=== PATIENT | female | born 1985 | race Caucasian/White ===

== ENCOUNTER → 2016-10-10 | Outpatient (CLI) | payer OTHER ==
[~2016-10-10] MED LIST: MULT-506 PO; OXYC-57 PO
[2016-10-10 10:30] LABS: BLOOD UREA NITROGEN 6 mg/dl (7-18); BUN/CREATININE RATIO 8.1 (10-20); CALCIUM 9.3 mg/dl (8.5-10.1); CARBON DIOXIDE 28 mmol/L (21-32); CHLORIDE 101 mmol/L (98-107); CHOLESTEROL 151 mg/dl (0-200); CREATININE 0.77 mg/dl (0.60-1.20); GLUCOSE 78 mg/dl (70-99); POTASSIUM 3.9 mmol/L (3.5-5.1); SODIUM 137 mmol/L (136-145)
[2016-10-10 10:40] LABS: CHOLESTEROL/HDL RATIO 3.9; HDL CHOLESTEROL 39 mg/dl; LDL CHOLESTEROL CALCULATED 81 mg/dl; THYROID STIMULATING HORMONE 0.792 uIu/ml (0.300-4.500); TRIGLYCERIDES 155 mg/dl (0-150); VERY LOW DENSITY LIPOPROT CALC 31 mg/dl
== END | disposition home or self-care (01) ==
LOC: C.LAB1850 09:16
PROVIDERS: ATTEND Internal Medicine
DX: Z13.29 Encounter for screening for other suspected endocrine disorder (principal); Z13.1 Encounter for screening for diabetes mellitus; Z13.220 Encounter for screening for lipoid disorders

== ENCOUNTER 2023-09-02 05:59 | Inpatient (IN) ==
--- OUTSIDE RECORDS SUMMARY | 2023-09-02 06:06 | External Medical Summary | Summary of Care ---
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 0 01/25/2017 Active hydroCHLOROthiazide (HYDRODIURIL) 12.5 MG Tablet Take 1/2 tablet daily 15 Tab 3 07/02/2019 Active Mupirocin 2 % External Ointment (Bactroban) 0 07/12/2021 Active levoFLOXacin 500 MG Oral Tablet (Levaquin) 0 06/14/2022 Active Benzonatate 200 MG Oral Capsule take 1 capsule by mouth three times a day if needed for cough 0 11/07/2022 Active buPROPion HCl ER (XL) 150 MG Oral Tablet Extended Release 24 Hour (Wellbutrin XL) Take 1 Tablet by mouth in the morning. In the morning.. 0 12/26/2022 Active busPIRone HCl 10 MG Oral Tablet (Buspar) Take 1 Tablet by mouth 2 times a day as needed. 0 12/26/2022 Active Sertraline HCl 100 MG Oral Tablet (Zoloft) Take 1 Tablet by mouth in the morning. 0 12/26/2022 Active Sulindac 200 MG Oral Tablet take 1 tablet by mouth every morning and BEFORE BEDTIME 60 Tablet 5 02/16/2023 Active Folic Acid 1 MG Oral TabletIndications:Gra nulomatosis with polyangiitis without renal involvement (HCC) take 2 tablets by mouth every morning 180 Tablet 3 05/31/2023 Active Methotrexate 2.5 MG Oral TabletIndications:Gra nulomatosis with polyangiitis without renal involvement (HCC) Take 8 Tablets by mouth once a week. take 4 tablets by mouth in the morning and take 4 tablets by mouth AT DINNER ONCE A WEEK 104 Tablet 0 08/09/2023 Active documented as of this encounter (statuses as of 08/24/2023) Active Problems Problem Noted Date Diagnosed Date Granulomatosis with polyangiitis without renal i nvolvement 10/13/2021 Encounter for therapeutic drug monitoring 2021 Calculus of ureter 09/06/2021 documented as of this encounter (statuses as of 08/24/2023) Immunizations Name Administration Dates Next Due COVID-19 mRNA, LNP-s, No Pre serve, 2-Dose Series ([employer]) 08/03/2021,01/19/2021,12/29/2020 documented as of this encounter Social History Tobacco Use Types Packs/Day Years Used Date Smoking Tobacco: Some Days Cigarettes 0.3 Last attempted to quit: 12/10/2016 Smokeless Tobacco: Never Alcohol Use Standard Drinks/Week Comments Yes 0 (1 standard drink = 0.6 oz pur e alcohol) 1 a week Sex and Gender Information Value Date Recorded Sex Assigned at Female 12/05/2021 3:12 PM EDT Gender Identity Female 12/05/2021 3:12 PM EDT Sexual Orientation Straight 12/05/2021 3: 12 PM EDT Job Start Date Occupation Industry Not on file Not on file Not on file documented as of this encounter Miscellaneous Notes * Telephone Encounter - Carole Reed [facility] - 08/24/2023 1:48 PM ESTRefused Prescriptions: Disp Refills Folic Acid 1 MG Oral Tablet 180 Ta*3 Refused By: CAROLE REED for Refusal: Too soonReason for Refusal Comment: 1 year supply sent 05/31/2023 * Telephone Encounter - Stefania Condon CPhT - 08/24/2023 11:46 AM ESTPending Prescriptions: Disp Refills Folic Acid 1 MG Oral Tablet 180 Ta*3 * Telephone Encounter - Stefania Condon CPhT - 08/24/2023 11:46 AM EST Did you pend patient's preferred pharmacy and medication before forwarding?yes Pharmacy: [id number] Pending Prescriptions: Disp Refills Folic Acid 1 MG Oral Tablet 180 Ta*3 Last Visit: 01/16/2023 (in office), Visit date not found (telemedicine) Next Visit: 09/21/2023 If no future appointments scheduled, and last appointment is greater than a year ago, please schedule patient for a follow-up appointment Last date the medication was ordered: 05.31.23 Is this request for a controlled substance?No Urine Drug Screen:No results found for this or any previous visit. Patient Phone Numbers Labs: Lab Results Component Value Date/Time CREAT 0.9 01/16/2023 11:20 AM CREAT 0.90 05/27/2021 12:00 AM CREAT 0.8 11/03/2017 01:52 PM POTASSIUM 4.6 01/16/2023 11:20 AM POTASSIUM 3.5 05/27/2021 12:00 AM POTASSIUM 3.9 11/03/2017 01:52 PM ALT 17 01/16/2023 11:20 AM documented in this encounter Plan of Treatment Upcoming Encounters Date Type Department Care Team (Late st Contact Info) Description 09/21/2023 9:20 AM EST Office Visit Rheumatology [place] [address] [employer] [place] [address] Esteban Banerjee MD [facility] [place] [address] Health Maintenance Due Date Last Done Comments Hepatitis B (1 of 3 - 3-dose series) 1984 Pneumococcal Vaccine: Pediatrics (0 to 5 Years) and At-Risk Patients (6 to 64 Years) (1 - PCV) 1990 Depression Screening 1996 HIV Screening 1999 DTaP,Tdap,and Td Vaccines (1 - Tdap) 2003 Pap Smear 2005 Cervical Cancer Screening 2014 HPV/Co-Test 2014 COVID-19 Vaccine (4 - 2022-2 4 season) 2023 08/03/2021, 01/19/2021, 12/29/2020 Influenza Vaccine (FLU shot) (#1) 2023 07/27/2016 GARDASIL-HPV IMMUNIZATION SERIES Aged Out No longer eligible b ased on patient's age to complete this topic MENINGOCOCCAL (MENACTRA/MENVEO) Aged Out No longer eligible b ased on patient's age to complete this topic documented as of this encounter Medical Devices Not on filedocumented as of this encounter Visit Diagnoses Diagnosis 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
[2023-09-02] MEDS ORDERED: SODIUM CHLORIDE 0.9% 1,000 ML IV ONE ×2 (06:29→08:09)
[2023-09-02] MEDS ORDERED: ONDANSETRON INJ 2 MG/ML 2 ML VIAL ONE (06:30)
--- NOTE | 2023-09-02 06:46 | Emergency Department Note ---
Impression & Plan Accidental overdose, Substance abuse, Leukocytosis, Elevated troponin, Hypoxia ED Provider Note ED Provider Note NAME: OTF WINSLOW AGE:38 SEX: Female : 1985 ARRIVES VIA: EMS INFORMANT: Patient, EMS ED PROVIDER(s): Barbara Chandra DO CHIEF COMPLAINT: Accidental overdose HPI: This is a 38-year-old female who presents emergency department following accidental overdose. Patient states she was at her ex-boyfriend's house waiting for him to get home from work and decided to use cocaine. She states she remembers sitting down when she spoke to the cocaine and the next thing she knows she was waking up in the ambulance. EMS reports ex-boyfriend came home and found her unresponsive with minimal respiratory effort and he called 911. Boyfriend gave the patient Narcan with improvement in her mentation. Patient states she does have a prior history of cocaine abuse and does routinely use marijuana. No history of fentanyl or heroin use. PAST MEDICAL HISTORY:See Below PAST SURGICAL HISTORY:See Below FAMILY HISTORY:See Below SOCIAL HISTORY:See Below HOME MEDICATIONS:See Below ALLERGIES:See Below VITALS:See Below PHYSICAL EXAMINATION: GENERAL: alert, thin habitus, no distress, non-toxic EYE EXAM: normal conjunctiva, PERRL and EOM's grossly intact OROPHARYNX: no exudate, no erythema, lips, buccal mucosa, and tongue normal and mucous membranes are dry NECK: supple, no nuchal rigidity, no adenopathy, non-tender LUNGS: Clear to auscultation. Normal chest wall mechanics, no w/r/r HEART: no murmurs, S1 normal and S2 normal ABDOMEN: abdomen soft, non-tender, normo-active bowel sounds, no masses, no rebound or guarding. BACK: Back is symmetrical on inspection and there is no deformity, no midline tenderness, no CVA tenderness. SKIN: no rashes, petechiae, orbruising UPPER EXTREMITIES: upper extremities are grossly normal. FROM, nml pulses b/l. LOWER EXTREMITIES: No pitting edema. FROM, nml pulses b/l. NEURO EXAM: Normal sensorium, cranial nerves II-XII grossly intact, normal speech, no facial droop,nogross weakness of arms, no gross weakness of legs. Gross sensation intact. No ataxia. Vital Signs: reviewed and remarkable Differential Diagnosis: drug overdose, syncope, dysrhythmia, aspiration, pulmonary edema, laurent, endocarditis, PE, PNA, pericarditis/myocarditis, as well as others were considered MEDICAL DECISION MAKING: This is a 38 yo female with a history of substance abuse who admits to using recreational drugs again this morning and was found unresponsive with minimal respiratory effort by her ex-BF who gave her narcan. Upon arrival via EMS, patient awake, alert, oriented but had nausea/vomiting. Labs drawn and sent, IV established, EKG and CXR performed and interpreted at bedside, and patient placed on telemetry. She was given zofran and started on IVF. She was found to have significant leukocytosis and elevated troponin. She denied chest pain or trouble breathing. We discussed these may be elevated as part of a stress reaction and her unresponsive episode in which she was likely hypoxic. She was able to tolerate po. After 2 L of IVF, labs were rechecked. It was unclear from EMS report if patient had been administered CPR during this event. She continued to report feeling improved, however she began having mild hypoxia despite denying any sense of being SOB. She was placed on oxygen via NC. REpeat cxr obtained and did not show evolving pulmonary edema or evidence of aspiration. Repeat labs with persistent elevated WBC and increased troponin. Significant bedside discussion regarding the need for additional evaluation and treatment given worsening hypoxia and worsening lab abnormalities as well as immunocompromised status given use of methotrexate. She had requested to be discharged, but was eventually in agreement with plan. Case discussed with the hospitalist for additional evaluation and treatment. No ectopy or dysrhythmia noted. No evolving fever. Consultation(s): 1320: Discussed with Dr. Garza, DC hospitalist, for additional evaluation and mgmt. ER Treatment Provided: See below Diagnostics Interpreted By Me: -ECG: sinus tachycardia at 114, nml axis, nml intervals, no acute ST/T wave changes -Cardiac Monitoring: An order was placed for continuous cardiac monitoring. The monitor shows a rate of 98 with normal sinus rhythm. -Laboratory studies: As stated above and show below. -Imaging studies: X-ray Chest: A single view study of the chest was reviewed and was negative for cardiomegaly, focal infiltrate, effusion, pulmonary edema, or wide mediastinum. Triage Nursing Note Reviewed Prior/Outside Records Reviewed - prior labs reviewed via pt's phone with her permission Past Med/Surg History Medical History Encounter for screening mammogram for malignant neoplasm of breast Right flank pain Chronic sinusitis, unspecified Mo's granulomatosis Nasal obstruction Nasal crusting Recurrent sinus infections Sinus infection Dysfunctional uterine bleeding Medial meniscus tear Lump of right breast Numbness and tingling in both hands Lipid screening Moderate cervical dysplasia, histologically confirmed Calcium oxalate stones Nephrolithiasis Nicotine dependence Right hip pain Ovarian cyst Kidney stone Surgical History H/O LEEP History of colposcopy History of dilation and curettage History of tooth extraction History of elbow surgery History of shoulder surgery S/P tubal ligation Family History Mother Cancer Cardiac disorder Ovarian cancer Myocardial infarction Grandmother (Maternal) Ovarian cancer Myocardial infarction Aunt Ovarian cancer Grandfather (Maternal) Myocardial infarction Other Heart disease Hypertension No family history of adverse response to anesthesia No family history of bleeding disorder Denies family history of Prostate cancer Breast cancer Colorectal cancer Social History Smoking Status: Current every day smoker Tobacco Type: Cigarettes Cigarettes Per Day: one pack per week; Do You Dip or Chew Tobacco: No; Hx Alcohol Use: Yes Alcohol type: beer Alcohol type Comment: Socially Hx Substance Use: Yes Last Used Substance Other:: Cocaine this week per pt reported Substance Use Type Other:: Fentanyl Preferred Language: Vietnamese Communication Ability: Effective Lithographic Proofer Required: No Beliefs That Will Affect Care: None marital status: Current Living Situation: Family current occupational status: employed Other Information That Helps Us Care for You: No Feels Safe at Home: Yes Safety Concerns: Feels Safe At This Time Dental Care, Regularly: No Physical Activity Frequency: Does not Exercise Seatbelt Use: always Sunscreen Use: No Assistive Devices: None Allergies Allergies Allergy/AdvReac Type Severity Reaction Status Date / Time No Known Allergies Allergy Verified 06/01/23 09:50 Home Meds Home Medications Medication Instructions Recorded Confirmed multivitamin 1 tab PO QAM 10/11/18 09/02/23 folic acid 1 mg tablet 2 mg PO DAILY 12/20/21 09/02/23 methotrexate sodium 2.5 mg tablet 20 mg PO WK 12/20/21 09/02/23 sulindac 200 mg PO BID 06/01/23 09/02/23 Previous Rx's Medication Instructions Recorded hydrochlorothiazide 12.5 mg tablet 6.25 - 12.5 mg (0.5 - 1 x 12.5 mg) 01/17/23 PO QAM #90 tabs mupirocin 2 % topical ointment 1 applic topical BID #15 grams 05/24/23 sertraline 100 mg tablet 150 mg (1.5 x 100 mg) PO DAILY 06/01/23 #135 tabs montelukast 10 mg tablet 10 mg PO QAM #90 tabs 06/28/23 prednisone 10 mg tablet See Rx Instructions PO DAILY #30 08/22/23 Tabs bupropion HCl 150 mg 24 hr tablet, 150 mg PO QAM #90 tabs 08/29/23 extended release (Wellbutrin XL) buspirone 10 mg tablet 10 mg PO BID PRN anxiety #60 tabs 08/31/23 Results & Data (ED) Vital Signs Vital Signs - 24 hr 09/02/23 09:10 09/02/23 09:20 09/02/23 09:30 Pulse Rate 99 H 99 H 113 H Pulse Rate from SpO2 Sensor 99 H 100 H 112 H Respiratory Rate 12 11 L 15 Blood Pressure Blood Pressure Mean Pulse Oximetry 95 93 96 Oxygen Delivery Method Oxygen Flow Rate 09/02/23 09:40 09/02/23 09:50 09/02/23 10:00 Pulse Rate 95 H 97 H 107 H Pulse Rate from SpO2 Sensor 98 H 97 H 106 H Respiratory Rate 18 16 17 Blood Pressure Blood Pressure Mean Pulse Oximetry 91 90 92 Oxygen Delivery Method Oxygen Flow Rate 09/02/23 10:10 09/02/23 10:10 09/02/23 10:15 Pulse Rate 116 H 92 H Pulse Rate from SpO2 Sensor 118 H Respiratory Rate 13 Blood Pressure 136/96 Blood Pressure Mean 101 Pulse Oximetry 96 Oxygen Delivery Method Oxygen Flow Rate 09/02/23 10:20 09/02/23 10:30 09/02/23 10:30 Pulse Rate 90 88 Pulse Rate from SpO2 Sensor 91 H 89 Respiratory Rate 16 19 Blood Pressure 130/92 Blood Pressure Mean 109 Pulse Oximetry 86 L 91 Oxygen Delivery Method Oxygen Flow Rate 09/02/23 10:40 09/02/23 11:00 09/02/23 11:30 Pulse Rate 94 H 93 H Pulse Rate from SpO2 Sensor 95 H 93 H 89 Respiratory Rate 26 H 14 Blood Pressure 119/94 110/87 Blood Pressure Mean 102 94 Pulse Oximetry 88 L 89 L 89 L Oxygen Delivery Method Room Air Room Air Oxygen Flow Rate 09/02/23 12:00 09/02/23 12:30 09/02/23 13:00 Pulse Rate Pulse Rate from SpO2 Sensor 92 H 96 H 90 Respiratory Rate Blood Pressure 138/103 H 110/83 126/94 Blood Pressure Mean 114 92 104 Pulse Oximetry 93 94 97 Oxygen Delivery Method Nasal Cannula Nasal Cannula Nasal Cannula Oxygen Flow Rate 2 2 2 09/02/23 13:30 Pulse Rate Pulse Rate from SpO2 Sensor 90 Respiratory Rate Blood Pressure 142/103 H Blood Pressure Mean 116 Pulse Oximetry 96 Oxygen Delivery Method Nasal Cannula Oxygen Flow Rate 2 Laboratory Data 09/03/23 05:51 09/03/23 05:51 Lab Results 09/02/23 09/02/23 Range/Units 06:15 09:34 WBC 31.71 H* 31.71 H* (4.8-10.8) K/ul RBC 4.41 3.87 L (4.20-5.40) M/uL Hgb 14.5 12.5 (12.0-16.0) g/dl Hct 43.4 37.8 (37.0-47.0) % MCV 98.4 97.7 (80.0-100.0) fL MCH 32.9 32.3 (25.0-34.0) pg MCHC 33.4 33.1 (32.0-36.0) g/dL RDW Std Deviation 50.0 H 49.2 H (36.4-46.3) fL RDW Coeff of Sole 13.8 13.8 (11.5-14.5) % Plt Count 517 H 419 H (130-400) K/uL MPV 9.5 9.1 L (9.4-12.4) fL Immature Gran % (Auto) 1.0 1.2 % Neut % (Auto) 90.7 88.1 % Lymph % (Auto) 6.7 6.4 % Platte % (Auto) 1.1 3.9 % Eos % (Auto) 0.2 0.0 % Baso % (Auto) 0.3 0.4 % Neut # (Auto) 28.76 H 27.91 H (1.40-6.50) K/uL Lymph # (Auto) 2.12 2.03 (1.20-3.40) K/uL Platte # (Auto) 0.36 1.25 H (0.11-0.59) K/uL Eos # (Auto) 0.06 0.01 (0.00-0.50) K/uL Baso # (Auto) 0.09 0.12 (0.00-0.20) K/uL Immature Gran # (Auto) 0.32 H 0.39 H (0.01-0.20) K/uL PT 11.3 (9.0-12.0) Seconds INR 1.0 (0.9-1.1) Sodium 141 (136-145) mmol/L Potassium 3.1 L (3.5-5.1) mmol/L Chloride 102 (98-107) mmol/L Carbon Dioxide 25 (21-32) mmol/L Anion Gap 14 H (3-11) BUN 13 (6-23) mg/dl Creatinine 1.32 H (0.6-1.2) mg/dl Est Cr Clr Drug Dosing 45.3 ml/min Est GFR ( Amer) 58.8 ml/min Est GFR (Non-Af Amer) 50.7 ml/min BUN/Creatinine Ratio 9.8 L (10-20) Glucose 197 H (70-99(Fasting)) mg/dl Calcium 9.6 (8.6-10.3) mg/dl Magnesium 2.4 (1.7-2.4) mg/dl Total Bilirubin 0.2 (0.2-1.0) mg/dl AST 78 H (13-39) U/L ALT 85 H (7-52) U/L Alkaline Phosphatase 89 (34-104) U/L Troponin I High Sens 81.3 H* 127.6 H* D (0-14) pg/ml Total Protein 8.2 (6.0-8.3) gm/dl Albumin 4.7 (3.4-5.0) gm/dl Globulin 3.5 (2.5-4.0) gm/dl Albumin/Globulin Ratio 1.3 (0.9-2) Lipase 42 (11-82) U/L TSH 10.283 H (0.300-4.500) uIu/ml Free T4 0.63 (0.61-1.60) ng/dl HCG, Qual Negative (Negative) Administered Medications Bupropion HCl (Bupropion Xl 150 Mg Tabcr) 150 mg PO QAM [facility] Stop: 10/03/23 08:59 Last Admin: 09/03/23 08:32 Dose: 150 mg Documented By: MG Buspirone HCl (Buspirone 5 Mg Tab) 10 mg PO DAILY PRN PRN Reason: anxiety Stop: 10/02/23 16:54 Last Admin: 09/03/23 08:32 Dose: 10 mg Documented By: MG Enoxaparin Sodium (Enoxaparin Inj 40 Mg/0.4 Ml Syr) 40 mg SQ Q24H [facility] Stop: 10/03/23 08:59 Last Admin: 09/03/23 08:30 Dose: 40 mg Documented By: MG Folic Acid (Folic Acid 1 Mg Tab) 2 mg PO DAILY [facility] Stop: 10/03/23 08:59 Last Admin: 09/03/23 08:31 Dose: 2 mg Documented By: MG Ceftriaxone Sodium 2,000 mg/ (Dextrose) 50 mls @ 100 mls/hr IV Q24H [facility]; Protocol Stop: 09/09/23 21:59 Last Infusion: 09/03/23 02:52 Dose: Infused Documented By: Admin: 09/02/23 23:29 Dose: 100 mls/hr Documented By: TRN Melatonin (Melatonin 3 Mg Tab) 3 mg PO HS PRN PRN Reason: Sleep Stop: 10/02/23 22:52 Last Admin: 09/02/23 23:29 Dose: 3 mg Documented By: TRN Montelukast Sodium (Montelukast Sodium 10 Mg Tablet) 10 mg PO QAM [facility] Stop: 10/03/23 08:59 Last Admin: 09/03/23 08:31 Dose: 10 mg Documented By: MG Mupirocin (Mupirocin 2% Oint 22 Gm Tube) 1 appln TOP BID [facility] Stop: 10/02/23 20:59 Last Admin: 09/03/23 08:30 Dose: 1 appln Documented By: Admin: 09/02/23 20:07 Dose: 1 appln Documented By: TRN Ondansetron HCl (Ondansetron Inj 2 Mg/Ml 2 Ml Vial) 4 mg IV Q4H PRN PRN Reason: Nausea Stop: 10/02/23 17:06 Last Admin: 09/02/23 17:31 Dose: 4 mg Documented By: MG Prednisone (Prednisone 10 Mg Tablet) 10 mg PO DAILY [facility] Stop: 10/03/23 08:59 Last Admin: 09/03/23 08:31 Dose: 10 mg Documented By: MG Sertraline HCl (Sertraline Hcl 100 Mg Tablet) 150 mg PO DAILY [facility] Stop: 10/03/23 08:59 Last Admin: 09/03/23 08:31 Dose: 150 mg Documented By: MG Discontinued Medications Sodium Chloride (Nss) 1,000 mls @ 999 mls/hr IV .Q1H1M ONE Stop: 09/02/23 07:29 Last Infusion: 09/02/23 12:02 Dose: Infused Documented By: Admin: 09/02/23 06:35 Dose: 999 mls/hr Documented By: MJ Acetaminophen (Ofirmev) 1,000 mg in 100 mls @ 400 mls/hr IV NOW STA Stop: 09/02/23 08:23 Last Infusion: 09/02/23 12:48 Dose: Infused Documented By: Admin: 09/02/23 08:19 Dose: 400 mls/hr Documented By: KAREN Sodium Chloride (Nss) 1,000 mls @ 999 mls/hr IV .Q1H1M ONE Stop: 09/02/23 09:09 Last Infusion: 09/02/23 12:03 Dose: Infused Documented By: Admin: 09/02/23 08:19 Dose: 999 mls/hr Documented By: KAREN Magnesium Sulfate/Dextrose (Magnesium Sulfate / D5w) 1 gm in 100 mls @ 100 mls/hr IV NOW STA Stop: 09/02/23 12:51 Last Infusion: 09/02/23 13:00 Dose: Infused Documented By: Admin: 09/02/23 12:03 Dose: 100 mls/hr Documented By: CPB Parenteral Electrolytes (Plasma-Lyte A Ph 7.4) 1,000 mls @ 999 mls/hr IV .Q1H1M ONE Stop: 09/02/23 14:54 Last Infusion: 09/02/23 20:05 Dose: Infused Documented By: Admin: 09/02/23 15:33 Dose: 999 mls/hr Documented By: CPB Ioversol (Optiray 320 125ml) 117 ml IV ONCE ONE Stop: 09/02/23 14:53 Last Admin: 09/02/23 14:52 Dose: 117 ml Documented By: EDK Lorazepam (Lorazepam 1 Mg/1 Ml Syr Ed Inj Use) 1 mg IV ONE STA Stop: 09/02/23 07:13 Last Admin: 09/02/23 07:18 Dose: 1 mg Documented By: KV Ondansetron HCl (Ondansetron Inj 2 Mg/Ml 2 Ml Vial) Confirm Administered Dose 4 mg .ROUTE .STK-MED ONE Stop: 09/02/23 06:31 Last Admin: 09/02/23 06:35 Dose: 4 mg Documented By: MLH Potassium Chloride (Potassium Chloride Crtab 20 Meq Tabcr) 40 meq PO NOW STA Stop: 09/02/23 16:56 Last Admin: 09/02/23 17:35 Dose: 40 meq Documented By: MG Imaging Data Radiologist's Impression: Chest X-Ray 09/02/23 06:29 XR chest 1V portable CLINICAL HISTORY: Shortness of breath. COMPARISON STUDY: Chest radiograph and left rib series October 20, 2022. FINDINGS: Lung volumes are normal. Lungs are clear. There is no pneumothorax or pleural effusion. Cardiac size is normal. Mediastinal contours are normal. There is no evidence for pulmonary edema. IMPRESSION: No acute cardiopulmonary findings. ACT 112: Negative or not required by law. Electronically signed by: Micah Sunshine M.D. 09/02/2023 7:11 AM Hip/Pelvis X-Ray 09/02/23 07:17 XR hip RT 2V w pelvis CLINICAL HISTORY: Right hip pain. COMPARISON: CT of the abdomen and pelvis September 09, 2022. FINDINGS: Sacroiliac joints and symphysis pubis are intact. There is no acute fracture within the pelvis or hips. Hip joint spaces are preserved. There is mild osteophytosis of both hips. Tiny ossicles along the right acetabulum are present. No evidence for avascular necrosis of the femoral heads. There are no osseous lesions. IMPRESSION: 1. No fractures within the pelvis or hips. 2. Preserved bilateral hip joint spaces. Mild bilateral hip osteophytosis. ACT 112: Negative or not required by law. Electronically signed by: Micah Sunshine M.D. 09/02/2023 8:13 AM Chest X-Ray 09/02/23 11:07 XR chest 1V portable CLINICAL HISTORY: Hypoxia. COMPARISON STUDY: Chest radiograph performed earlier today FINDINGS: Lung volumes are normal. Lungs are clear. There is no pneumothorax or pleural effusion. Cardiac size is normal. Mediastinal contours are normal. There is no evidence for pulmonary edema. IMPRESSION: No acute cardiopulmonary findings. ACT 112: Negative or not required by law. Electronically signed by: Micah Sunshine M.D. 09/02/2023 11:54 AM Discharge Plan Visit Data Chief Complaint: Overdose (Accidental) Stated Complaint: OVERDOSE ED Provider: Barbara Chandra Discharge Problem: Accidental overdose, Substance abuse, Leukocytosis, Elevated troponin, Hypoxia Patient Disposition: Admitted As Inpatient Discharge Instructions Interventions: ED Discharge Assessment Last Done: 09/02/23 15:55
[2023-09-02 06:59] LABS: Hematocrit (blood only) 43.4 % (37.0-47.0); Hemoglobin 14.5 g/dl (12.0-16.0); Mean Corpuscular Hemoglobin 32.9 pg (25.0-34.0); Mean Corpuscular Hgb Conc 33.4 g/dL (32.0-36.0); Mean Corpuscular Volume 98.4 fL (80.0-100.0); Mean Platelet Volume 9.5 fL (9.4-12.4); Platelet Count 517 K/uL (130-400); Pregnancy Test, Serum Negative (Negative); RDW Coefficient of Variation 13.8 % (11.5-14.5); Red Blood Count 4.41 M/uL (4.20-5.40); White Blood Count 31.71 K/ul (4.8-10.8)
[2023-09-02 07:00] LABS: Albumin Globulin Ratio 1.3 (0.9-2); Albumin Level 4.7 gm/dl (3.4-5.0); BUN Creatinine Ratio 9.8 (10-20); Bilirubin,Total 0.2 mg/dl (0.2-1.0); Calcium 9.6 mg/dl (8.6-10.3); Creatinine Clr Calc Pharmacy 45.3 ml/min; Est GFR (African American) 58.8 ml/min; Est GFR (Non-African American) 50.7 ml/min; Globulin 3.5 gm/dl (2.5-4.0); Magnesium 2.4 mg/dl (1.7-2.4); Potassium 3.1 mmol/L (3.5-5.1); Total Protein 8.2 gm/dl (6.0-8.3)
[2023-09-02 07:08] LABS: Prothrombin Time 11.3 Seconds (9.0-12.0)
[2023-09-02 07:11] LABS: Troponin I High Sensitivity 81.3 pg/ml (0-14)
[2023-09-02] MEDS ORDERED: LORazepam 1 MG/1 ML SYR ED Inj Use IV STA (07:12)
--- NOTE | 2023-09-02 07:12 | XRay Report ---
XR chest 1V portable CLINICAL HISTORY: Shortness of breath. COMPARISON STUDY: Chest radiograph and left rib series October 20, 2022. FINDINGS: Lung volumes are normal. Lungs are clear. There is no pneumothorax or pleural effusion. Car diac size is normal. Mediastinal contours are normal. There is no evidence for pulmonary edema. IMPRESSION: No acute cardiopulmonary findings. ACT 112: Negative or not required by law. Electronically signed by: Micah Sunshine M.D. 09/02/2023 7:11 AM
[2023-09-02 07:13] LABS: Basophils # (auto) 0.09 K/uL (0.00-0.20); Basophils % (auto) 0.3 %; Eosinophils # (auto) 0.06 K/uL (0.00-0.50); Eosinophils % (auto) 0.2 %; Immature Granulocytes # (auto) 0.32 K/uL (0.01-0.20); Lymphocytes # (auto) 2.12 K/uL (1.20-3.40); Lymphocytes % (auto) 6.7 %; Monocytes # (auto) 0.36 K/uL (0.11-0.59); Monocytes % (auto) 1.1 %; Neutrophils # (auto) 28.76 K/uL (1.40-6.50); Neutrophils % (auto) 90.7 %
--- NOTE | 2023-09-02 07:14 | Electrocardiogram Report ---
Test Reason : Blood Pressure : / mmHG Vent. Rate : 114 BPM Atrial Rate : 114 BPM P-R Int : 138 ms QRS Dur : 076 ms QT Int : 350 ms P-R-T Axes : 071 081 072 degrees QTc Int : 482 ms Sinus tachycardia Otherwise normal ECG No previous ECGs available Confirmed by Jay Ortiz ([id number]) on 09/02/2023 7:13:52 AM Referred By: Confirmed By:Twan Ortiz
[2023-09-02 07:16] LABS: Thyroid Stimulating Hormone 10.283 uIu/ml (0.300-4.500)
[2023-09-02 07:52] LABS: T4 Free Thyroxine 0.63 ng/dl (0.61-1.60)
[2023-09-02] MEDS ORDERED: ACETAMINOPHEN 1,000 MG/100 ML VIAL IV STA (08:09)
--- NOTE | 2023-09-02 08:16 | XRay Report ---
XR hip RT 2V w pelvis CLINICAL HISTORY: Right hip pain. COMPARISON: CT of the abdomen and pelvis September 09, 2022. FINDINGS: Sacroiliac joints and symphysis pubis are intact. There is no acute fracture within the pe lvis or hips. Hip joint spaces are preserved. There is mild osteophytosis of both hips. Tiny ossicles along the right acetabulum are present. No evidence for avascular necrosis of the femoral heads. The re are no osseous lesions. IMPRESSION: 1. No fractures within the pelvis or hips. 2. Preserved bilateral hip joint spaces. Mild bilateral hip osteophytosis. ACT 112: Negative or not required by law. Electronically signed by: Micah Sunshine M.D. 09/02/2023 8:13 AM
[2023-09-02 08:39] LABS: Appearance Urine Cloudy (Clear); Bacteria Urine Automated Negative (Negative); Bilirubin Urine Negative (Negative); Blood Urine Trace (Negative); Color Urine Yellow; Epithelial Cell Urine Auto >30 /lpf (0-5); Glucose Urine UA Trace (Negative); Ketones Urine Negative (Negative); Leukocyte Esterase Urine Negative (Negative); Nitrite Urine Negative (Negative); Protein Urine 1+ (Negative); RBC Urine Automated 0-4 /hpf (0-4); Urobilinogen Urine Negative (Negative); pH Urine 6.5 (4.5-7.5)
[2023-09-02 09:01] LABS: Amphetamines+Metham, Urine Neg (Neg); Barbiturates, Urine Neg (Neg); Benzodiazepine, Urine Neg (Neg); Cocaine, Urine Pos (Neg); MDMA (Ecstacy), Urine Neg (Neg); Marijuana, Urine Pos (Neg); Methadone, Urine Neg (Neg); Opiate, Urine Neg (Neg); Phencyclidine, Urine Neg (Neg)
[2023-09-02 10:05] LABS: Hematocrit (blood only) 37.8 % (37.0-47.0); Hemoglobin 12.5 g/dl (12.0-16.0); Mean Corpuscular Hemoglobin 32.3 pg (25.0-34.0); Mean Corpuscular Hgb Conc 33.1 g/dL (32.0-36.0); Mean Corpuscular Volume 97.7 fL (80.0-100.0); Mean Platelet Volume 9.1 fL (9.4-12.4); Platelet Count 419 K/uL (130-400); RDW Coefficient of Variation 13.8 % (11.5-14.5); RDW Standard Deviation 49.2 fL (36.4-46.3); Red Blood Count 3.87 M/uL (4.20-5.40); White Blood Count 31.71 K/ul (4.8-10.8)
[2023-09-02 10:09] LABS: Basophils # (auto) 0.12 K/uL (0.00-0.20); Basophils % (auto) 0.4 %; Eosinophils # (auto) 0.01 K/uL (0.00-0.50); Immature Granulocytes # (auto) 0.39 K/uL (0.01-0.20); Immature Granulocytes % (auto) 1.2 %; Lymphocytes # (auto) 2.03 K/uL (1.20-3.40); Lymphocytes % (auto) 6.4 %; Monocytes # (auto) 1.25 K/uL (0.11-0.59); Monocytes % (auto) 3.9 %; Neutrophils # (auto) 27.91 K/uL (1.40-6.50); Neutrophils % (auto) 88.1 %
[2023-09-02] MEDS ORDERED: MAGNESIUM SULFATE / D5W 1 GM/100 ML BAG IV STA (11:52)
--- NOTE | 2023-09-02 11:57 | XRay Report ---
XR chest 1V portable CLINICAL HISTORY: Hypoxia. COMPARISON STUDY: Chest radiograph performed earlier today FINDINGS: Lung volumes are normal. Lungs are clear. There is no pneumothorax or pleural effusion. Car diac size is normal. Mediastinal contours are normal. There is no evidence for pulmonary edema. IMPRESSION: No acute cardiopulmonary findings. ACT 112: Negative or not required by law. Electronically signed by: Micah Sunshine M.D. 09/02/2023 11:54 AM
--- NOTE | 2023-09-02 13:08 | History & Physical Report ---
Date of Service September 02, 2023 Assessment & Plan (1) Accidental overdose: Plan: Accidental fentanyl overdose, history of cocaine use - Accidentally smoked fentanyl thinking it was cocaine. Denies other coingestions. Last used cocaine earlier this week. Patient lost consciousness shortly after use woke up in the ambulance. Was administered 1 dose of Narcan by her boyfriend per EMS with improvement in mentation -Persistent oxygen requirement while in the ER despite improvement otherwise, no sedation with this oxygen requirement. CXR is clear. CT pending ? Cocaine associated myocardial ischemia with elevated troponin Do not administer any beta-blockers Patient received lorazepam 1 mg while in the ER, if persistent agitation may administer 5 mg IV diazepam x 1 EKG: No acute ischemic changes, sinus rhythm (2) Leukocytosis: Plan: Severe leukocytosis Leukocytosis of greater than 30 with left shift/immature granulocyte expansion Also present on repeat blood work. Do not suspect this is due to demargination. She has had sinusitis recently treated with Levaquin, denies fever/chills/sweats, and has been on steroid taper however degree of leukocytosis expansion is disproportionate and is with immature cells Blood cultures ordered, echo pending, peripheral smear ordered. Patient is with a systolic murmur new and unknown to her previously Denies urinary symptoms, endorses history of UTIs but no current symptoms. Denies abdominal pain. Denies chest pain. Denies headache. Endorses chronic sinusitis symptoms which are worse with her GPA; however these have improved to near her normal baseline since taking Levaquin Denies history of IV drug use Antibiotics deferred pending additional source evaluation and workup. If CT chest, urine, blood workup is negative then can consider follow-up with CT of the face to reevaluate for sinus infection. (3) Mo's granulomatosis: Plan: History of Mo's granulomatosis Follows with ENT for GPA with recurrent sinusitis. On last follow-up 08/22/2023 was with septal perforation and left maxillary sinusitis. Was not felt to be a surgical candidate. Was prescribed Levaquin x 10 days on 08/22/2023 and 12-day prednisone e taper. Did recommend for follow-up with Dr. Banerjee/rheumatology for optimization of GPA and steroid course evaluation. Septal perforation is also in the setting of cocaine us If requiring intubation would require the smallest possible endotracheal tube 5.0/5.5 Has every 3 months follow-up, currently on methotrexate and follows with [facility] Has been treated with methotrexate (4) JUNG (acute kidney injury): Plan: JUNG, Creatinine 1.32, clinically volume contracted. Baseline less than 0.9 Received 1 L IVF, patient is not septic on admission. Oral fluids encouraged, BMP daily, renally adjust medications as needed. Potassium repleted. (5) Transaminitis: Plan: Transaminitis New, mild with alcohol use overnight and accidental overdose. Trend. If above workup negative, follow-up with ultrasound/liver versus CTA/P. On admitting exam abdomen is benign with no tenderness rebound or guarding Plan DVT prophylaxis:Lovenox Diet: Regular Disposition: Medical telemetry while troponin trended and under cardiac observation CODE STATUS: Full code History of Present Illness Primary Care Provider: Juliette Yeager MD Jennifer is a 38-year-old female with past medical history of substance abuse, anxiety/depression, Mo's granulomatosis who presented to the ER after a accidental overdose. Patient had used cocaine and then lost consciousness and woke up in the ambulance. By EMS/ER report patient was found unresponsive by her boyfriend and was administered Narcan prehospital which improved mentation. Patient has no history of fentanyl/heroin abuse. Acute leukocytosis of 31.71 with Intrasite predominance and left shift. High sensitive troponin 81, repeat 127 in the setting of cocaine use TSH elevated, free T4 normal UA is contaminated but not infected appearing Urine tox shows positive cocaine positive marijuana, this is negative for opiates Chest x-ray without acute findings, hip and pelvis x-ray is without acute findings Creatinine is acutely elevated at 1.32 from baseline of around 0.9. Potassium low at 3.1, repleted Went out with friends around 1pm. Was offered what she thought was cocaine, but was actually fentanyl. Didn't feel right immediately after, sat down, and then woke up in the ambulance. Last known cocaine use 1x in the last week. 2 drinks last night, normally does not trink etoh at all due to her methotrexate. She takesthis 1x per week and took her weekly dose this morning. Prenisone currently on taper from 1 week ago (last ), now on last day of 20mg and scheduled to go back to 10mg starting tomorrow. Was off prednisone for a while, but due to the season change had more sinus infections so pred was restarted on prenisone last week after she completed a 1 week course of an antibiotic (levofloxacin). She is no longer taking hctz, took this for kidney stones. Takes bupropion, took this am. took buspar this monring is down to once daily. Takes folic acid daily. Takes sertraline 150 in the morning. Medical History: Reviewed Medications: Reviewed Surgical History: Reviewed Family history: Reviewed Allergies: Reviewed Social History: Rare social etoh. Less than monthly use. Intermittent tobacco use. Declines patch Code Status: Full Allergies Allergy/AdvReac Type Severity Reaction Status Date / Time No Known Allergies Allergy Verified 06/01/23 09:50 Home Medications Medication Instructions Recorded Confirmed Type multivitamin 1 tab PO QAM 10/11/18 09/02/23 History folic acid 1 mg tablet 2 mg PO DAILY 12/20/21 09/02/23 History methotrexate sodium 2.5 mg tablet 20 mg PO WK 12/20/21 09/02/23 History hydrochlorothiazide 12.5 mg tablet 6.25 - 12.5 mg (0.5 - 1 x 12.5 mg) 01/17/23 09/02/23 Rx PO QAM #90 tabs mupirocin 2 % topical ointment 1 applic topical BID #15 grams 05/24/23 09/02/23 Rx sertraline 100 mg tablet 150 mg (1.5 x 100 mg) PO DAILY 06/01/23 09/02/23 Rx #135 tabs sulindac 200 mg PO BID 06/01/23 09/02/23 History montelukast 10 mg tablet 10 mg PO QAM #90 tabs 06/28/23 09/02/23 Rx prednisone 10 mg tablet See Rx Instructions PO DAILY #30 08/22/23 09/02/23 Rx Tabs bupropion HCl 150 mg 24 hr tablet, 150 mg PO QAM #90 tabs 08/29/23 09/02/23 Rx extended release (Wellbutrin XL) buspirone 10 mg tablet 10 mg PO BID PRN anxiety #60 tabs 08/31/23 09/02/23 Rx Past Med/Surg History Medical History Encounter for screening mammogram for malignant neoplasm of breast Right flank pain Chronic sinusitis, unspecified Mo's granulomatosis Nasal obstruction Nasal crusting Recurrent sinus infections Sinus infection Dysfunctional uterine bleeding Medial meniscus tear Lump of right breast Numbness and tingling in both hands Lipid screening Moderate cervical dysplasia, histologically confirmed Calcium oxalate stones Nephrolithiasis Nicotine dependence Right hip pain Ovarian cyst Kidney stone Surgical History H/O LEEP History of colposcopy History of dilation and curettage History of tooth extraction History of elbow surgery History of shoulder surgery S/P tubal ligation Family History Mother Cancer Cardiac disorder Ovarian cancer Myocardial infarction Grandmother (Maternal) Ovarian cancer Myocardial infarction Aunt Ovarian cancer Grandfather (Maternal) Myocardial infarction Other Heart disease Hypertension No family history of adverse response to anesthesia No family history of bleeding disorder Denies family history of Prostate cancer Breast cancer Colorectal cancer Social History Smoking Status: Current every day smoker Tobacco Type: Cigarettes and E-cigarettes / Vaping Cigarettes Per Day: 10; Do You Dip or Chew Tobacco: No; Hx Alcohol Use: Yes Alcohol type Comment: Socially Hx Substance Use: No Preferred Language: Polish marital status: Current Living Situation: Family current occupational status: employed Feels Safe at Home: Yes Dental Care, Regularly: No Physical Activity Frequency: Does not Exercise Seatbelt Use: always Sunscreen Use: No Physical Exam Physical Exam: General: A&Ox3. NAD. Cooperative. HEENT: Nasal septum with scant amount of dried blood, septum is perforated on transillumination exam, no active epistaxis. Patient endorses mild sinus congestion but without maxillary palpation pain. Poor dentition Pulm: CTAB A&P. -wheezes, -rales, -rhonchi. Symmetrical chest rise. No increased work of breathing. No respiratory distress. Cardiac: RRR, systolic murmur present. Radial pulses intact and symmetrical. Abdominal: Nontender, nondistended, soft. BS present. Extremities: Warm, dry. No edema. No track farias appreciated on exam Results & Data Results & Data Vital Signs (Past 12 Hours) Vital Signs Temp Pulse Resp BP Pulse Ox O2 Del Method O2 Flow Rate 09/02/23 12:30 110/83 94 Nasal Cannula 2 09/02/23 12:00 138/103 H 93 Nasal Cannula 2 09/02/23 11:30 110/87 89 L Room Air 09/02/23 11:00 93 H 14 119/94 89 L Room Air 09/02/23 10:40 94 H 26 H 88 L 09/02/23 10:30 88 19 91 09/02/23 10:30 130/92 09/02/23 10:20 90 16 86 L 09/02/23 10:15 92 H 09/02/23 10:10 116 H 13 96 09/02/23 10:10 136/96 09/02/23 10:00 107 H 17 92 09/02/23 09:50 97 H 16 90 09/02/23 09:40 95 H 18 91 09/02/23 09:30 113 H 15 96 09/02/23 09:20 99 H 11 L 93 09/02/23 09:10 99 H 12 95 09/02/23 09:00 102 H 12 93 09/02/23 08:50 100 H 12 94 09/02/23 08:40 101 H 12 93 09/02/23 08:30 104 H 16 94 09/02/23 08:20 105 H 19 91 09/02/23 08:18 105 H 15 86 L 09/02/23 07:30 160/117 H 09/02/23 07:30 98 H 26 H 97 09/02/23 07:20 100 H 23 99 09/02/23 07:10 95 H 20 98 09/02/23 07:00 137/109 H 09/02/23 07:00 105 H 19 98 09/02/23 06:50 95 H 16 98 09/02/23 06:40 95 H 18 98 09/02/23 06:30 156/107 H 09/02/23 06:30 96 H 21 96 09/02/23 06:20 22 100 09/02/23 06:13 Room Air 09/02/23 06:10 107 H 15 91 09/02/23 06:08 110 H 25 H 95 09/02/23 06:08 110 H 09/02/23 06:08 36.8 C 109 H 18 153/108 H 99 Room Air PG Care Time/CCT Total # of Minutes Spent Total Time Spent with Patient: Total time spent is greater than 50% in coordination of care (as documented) at patient's floor/unit and/or counseling patient: Coding Level of Care Code 16524 INT INP/OBS CARE 3/75MIN Diagnoses Accidental overdose T50.901A Leukocytosis D72.829 Mo's granulomatosis M31.30 Granulomatosis renal involvement: unspecified whether renal involvement JUNG (acute kidney injury) N17.9 Transaminitis R74.01 (3) Mo's granulomatosis Granulomatosis renal involvement: unspecified whether renal involvement Qualified Code(s): M31.30 - Mo's granulomatosis without renal involvement
--- NOTE | 2023-09-02 13:28 | Electrocardiogram Report ---
Test Reason : Blood Pressure : / mmHG Vent. Rate : 093 BPM Atrial Rate : 093 BPM P-R Int : 138 ms QRS Dur : 086 ms QT Int : 390 ms P-R-T Axes : 078 084 081 degrees QTc Int : 486 ms Normal sinus rhythm When compared with ECG of 02-SEP-2023 06:04, No significant change was found Confirmed by Jay Ortiz ([id number]) on 09/02/2023 1:28:27 PM Referred By: Confirmed By:Twan Ortiz
[2023-09-02] MEDS ORDERED: PLASMA-LYTE A 1,000 ML IV ONE (13:54)
[2023-09-02] MEDS ORDERED: OPTIRAY 320 125ml IV ONE (14:52)
--- NOTE | 2023-09-02 16:32 | CT Scan Report ---
CT angio chest PE protocol CLINICAL HISTORY: PE TECHNIQUE: Multidetector row helical CT of the chest was performed with angiographic protocol. Gonzalez l and sagittal reformations were obtained. Coronal and sagittal MIPS were obtained from the axial crow a set and were submitted for review. Automated dose lowering techniques and/or adjustment according to patient size were utilized for this exam. CT DOSE: 239.98 mGy.cm Comparison: None available at the time of this dictation. FINDINGS: Lungs and pleura: There is groundglass opacities are seen most prominently in the left lower lobe. Heart and pericardium: Heart size is normal. No pericardial effusion. Vessels: No evidence of pulmonary embolism. Mediastinum and taiwo: Unremarkable. Chest wall and lower neck: Unremarkable. Abdomen: Unremarkable. Bones: Unremarkable. IMPRESSION: No pulmonary embolus. Groundglass opacities favored to represent pneumonia, most prominent in the lef t lower lobe. ACT 112: Negative or not required by law. Electronically signed by: Gallito Navarrete M.D. 09/02/2023 4:30 PM
[2023-09-02] MEDS ORDERED: POLYETHYLENE (MIRALAX) 17 GM PACK PO PRN (16:55)
[2023-09-02] MEDS ORDERED: POTASSIUM CHLORIDE CRTAB 20 MEQ TABCR PO STA (16:55)
[2023-09-02] MEDS ORDERED: busPIRone 5 MG TAB PO PRN (16:55)
[2023-09-02] MEDS ORDERED: ONDANSETRON INJ 2 MG/ML 2 ML VIAL IV PRN (17:07)
--- NOTE | 2023-09-02 18:32 | XCELERA ---
[id number] \\[id number]
[2023-09-02] MEDS: MUPIROCIN 2% OINT 22 GM TUBE TOP SCH (20:07)
[2023-09-02] MEDS ORDERED: MELATONIN 3 MG TAB PO PRN (22:53)
[2023-09-02] MEDS: cefTRIAXone SODIUM 2,000 MG in DEXTROSE 5 % MINI-B 50 ML IV SCH (23:29)
[2023-09-03 06:32] LABS: BUN Creatinine Ratio 11.8 (10-20); Calcium 8.8 mg/dl (8.6-10.3); Creatinine Clr Calc Pharmacy 83.8 ml/min; Est GFR (African American) 127.7 ml/min; Est GFR (Non-African American) 110.2 ml/min; Potassium 3.7 mmol/L (3.5-5.1)
[2023-09-03 06:41] LABS: Basophils # (auto) 0.05 K/uL (0.00-0.20); Basophils % (auto) 0.3 %; Eosinophils # (auto) 0.47 K/uL (0.00-0.50); Eosinophils % (auto) 2.8 %; Hematocrit (blood only) 35.2 % (37.0-47.0); Hemoglobin 11.5 g/dl (12.0-16.0); Immature Granulocytes # (auto) 0.08 K/uL (0.01-0.20); Immature Granulocytes % (auto) 0.5 %; Lymphocytes # (auto) 4.42 K/uL (1.20-3.40); Lymphocytes % (auto) 26.7 %; Mean Corpuscular Hemoglobin 31.7 pg (25.0-34.0); Mean Corpuscular Hgb Conc 32.7 g/dL (32.0-36.0); Mean Platelet Volume 9.6 fL (9.4-12.4); Monocytes # (auto) 0.43 K/uL (0.11-0.59); Monocytes % (auto) 2.6 %; Neutrophils # (auto) 11.08 K/uL (1.40-6.50); Neutrophils % (auto) 67.1 %; Platelet Count 402 K/uL (130-400); RDW Coefficient of Variation 13.7 % (11.5-14.5); RDW Standard Deviation 47.9 fL (36.4-46.3); Red Blood Count 3.63 M/uL (4.20-5.40); White Blood Count 16.53 K/ul (4.8-10.8)
[2023-09-03 07:04] LABS: Troponin I High Sensitivity 91.1 pg/ml (0-14)
[2023-09-03] MEDS: MUPIROCIN 2% OINT 22 GM TUBE TOP SCH ×2 (08:30→20:36)
[2023-09-03] MEDS: ENOXAPARIN INJ 40 MG/0.4 ML SYR SQ SCH (08:30)
[2023-09-03] MEDS: FOLIC ACID 1 MG TAB PO SCH (08:31)
[2023-09-03] MEDS: SERTRALINE HCL 100 MG TABLET PO SCH (08:31)
[2023-09-03] MEDS: MONTELUKAST SODIUM 10 MG TABLET PO SCH (08:31)
[2023-09-03] MEDS: predniSONE 10 MG TABLET PO SCH (08:31)
[2023-09-03] MEDS: buPROPion XL 150 MG TABCR PO SCH (08:32)
[2023-09-03] MEDS ORDERED: LORazepam 0.5 MG TAB PO STA (10:25)
[2023-09-03] MEDS: busPIRone 5 MG TAB PO SCH ×2 (14:20→20:36)
--- NOTE | 2023-09-03 16:06 | CT Scan Report ---
CT head/brain wo con CLINICAL HISTORY: 38 years-old Female with syncope, fall, head injury - r/o ICH, etc. Acute head inj ury status post fall TECHNIQUE: Multiple axial CT images of the head were obtained without contrast. A dose lowering tech nique was utilized adhering to the principles of ALARA. CT DOSE: 547.75 mGy.cm COMPARISON: None. FINDINGS: No acute intracranial hemorrhage, midline shift, intracranial mass, hydrocephalus, territorial ischem ia or abnormal extra-axial collection. The calvarium is intact. Minimal mucosal thickening of the imaged paranasal sinuses. The mastoid air cells are clear. IMPRESSION: No acute intracranial abnormality or calvarial fracture. ACT 112: Negative or not required by law. The above report was generated using voice recognition software. It may contain grammatical, syntax o r spelling errors. Electronically signed by: Catarino Mccauley M.D. 09/03/2023 4:05 PM
--- NOTE | 2023-09-03 20:07 | Hospitalist Progress Note ---
Date of Service September 03, 2023 Assessment & Plan (1) Aspiration pneumonia: Plan: CT chest with groundglass opacities primarily in the LLL. She had been vomiting and had syncope. Suspect aspiration pneumonia. Remains on IV rocephin; WBC count improving with such. Could consider changing to PO augmentin tomorrow if she is clinically stable and wbc count cont to trend down. Fortunately she is not requiring any O2. Blood cx's neg to date. (2) Head injury: Plan: likely 2nd to syncope in the setting of #[address] head - r/o ICH (from trauma, from cocaine use), fracture, etc. ice prn to affected area if desired (3) Syncope: Plan: this occurred in the setting of #4 non-focal neuro exam echo wnl tele thus far wnl electrolytes stable CT head ordered and pending (4) Accidental overdose: Plan: by report - accidentally smoked fentanyl thinking it was cocaine? she reported to the admitting physician that she used cocaine earlier this week. was administered 1 dose of Narcan by her boyfriend per EMS with improvement in mentation. if indeed she took fentanyl I am surprised her tox screen was negative for opiates. either way she is stable now with stable vitals, etc. no evidence of withdrawal from any substance today. ultimately it is very possible that she indeed did overdose on cocaine -- the elevated troponin, etc would fit with cocaine overdose (myocardial ischemia, etc). (5) Polysubstance abuse: Plan: tox screen + for cocaine and THC prior h/o heroin use per the chart tobacco use (6) Mo's granulomatosis: Plan: Follows with ENT - Dr Wheeler - [facility] [place] [facility] h/o recurrent sinusitis. last follow-up 08/22/2023 - septal perforation and left maxillary sinusitis seen by Dr Wheeler. Was not felt to be a surgical candidate. Was prescribed Levaquin x 10 days on 08/22/2023 and 12-day prednisone taper. also follows with Dr. Banerjee from [facility] Rheum takes chronic methotrexate once weeky (7) JUNG (acute kidney injury): Plan: resolved s/p IV fluids Cr stable today (8) Transaminitis: Plan: repeat AST/ALT in am get CPK with it due to syncope/hitting head/etc if LFTs remain elevated check HepB, HepC, etc (9) Elevated troponin: Plan: likely myocardial demand ischemia in setting of overdose (cocaine more than likely) no ACS echo wnl (10) Leukocytosis: Plan: 31 upon presentation now improved to <20 physical stress of overdose/syncope, aspiration pneumonia, recent prednisone use with demargination, etc all to blame recheck cbc am follow blood cx's (11) On methotrexate therapy: Plan: for Omega's Granulomatosis cont folate (12) Anxiety: Plan: severe anxiety voiced to nursing and myself throughout the day increase buspar to 10mg TID cont wellbutrin cont sertraline Plan DVT prophylaxis: Lovenox watch overnight follow cultures d/c home tomorrow? Admission and Anticipated Discharge Date Admission Date: September 02, 2023 Subjective tele stable overnight - NSR pt c/o pain top of head/high occiput - swelling is present there denies any dyspnea or AGUILAR some mild cough she was vomiting yesterday but this has resolved and has not recurred denies pain in any other location Review of Systems Review of Systems: gen - no fevers HENT - recent sinus congestion - improved with prednisone burst CV - no chest pain GI - no abd pain Physical Exam Physical Exam: gen - resting comfortably in bed, NAD, didn't cough during the visit mouth - MMM, no lesions neck - no JVD heart - RRR, s1 s2 lungs - b/l basilar rales, mostly on left; no wheezes; no increased work of breathing abd - soft NT ND BS+ head - small abrasion at top of head with mild swelling and tenderness to palpation; no skull abnormalities ext - no edema, pulses 2+ b/l psych - a/o x 3 neuro - strength 5/5 x 4 exts, no facial droop, speech clear & fluent Results & Data Results & Data Vital Signs (Past 12 Hours) Vital Signs Temp Pulse Pulse Resp BP Pulse Ox O2 Del Method 09/03/23 14:05 74 09/03/23 12:33 37.1 C 72 16 142/91 H 93 Room Air 09/03/23 08:09 36.8 C 75 16 138/94 99 Room Air Laboratory Results Laboratory Results - last 48 hr 09/02/23 09/02/23 09/02/23 06:15 09:34 23:07 WBC 31.71 H* RBC 3.87 L Hgb 12.5 Hct 37.8 MCV 97.7 MCH 32.3 MCHC 33.1 RDW Std Deviation 49.2 H RDW Coeff of Sole 13.8 Plt Count 419 H MPV 9.1 L Immature Gran % (Auto) 1.2 Neut % (Auto) 88.1 Lymph % (Auto) 6.4 Talbot % (Auto) 3.9 Eos % (Auto) 0.0 Baso % (Auto) 0.4 Neut # (Auto) 27.91 H Lymph # (Auto) 2.03 Talbot # (Auto) 1.25 H Eos # (Auto) 0.01 Baso # (Auto) 0.12 Immature Gran # (Auto) 0.39 H Peripher Smr Path Cons Sodium Potassium Chloride Carbon Dioxide Anion Gap BUN Creatinine Est Cr Clr Drug Dosing Est GFR ( Amer) Est GFR (Non-Af Amer) BUN/Creatinine Ratio Glucose Calcium Troponin I High Sens 127.6 H* D 111.7 H* Urine Color Urine Appearance Urine pH Ur Specific Sheridan Urine Protein Urine Glucose (UA) Urine Ketones Urine Blood Urine Nitrite Urine Bilirubin Urine Urobilinogen Ur Leukocyte Esterase Urine WBC (Auto) Urine RBC (Auto) U Hyaline Cast (Auto) U Epithel Cells (Auto) Urine Bacteria (Auto) Ur Renal Epithelial Cell Nasal Screen MRSA (PCR) Urine Opiates Screen Ur Methadone, Qual Urine Barbiturates Ur Phencyclidine (PCP) U Amphetamin/Meth Scrn MDMA (Ecstasy) Screen U Benzodiazepines Scrn Ur Cocaine Metabolite U Marijuana (THC) Screen 09/02/23 09/03/23 09/03/23 Unknown 05:51 06:11 WBC 16.53 H D RBC 3.63 L Hgb 11.5 L Hct 35.2 L MCV 97.0 MCH 31.7 MCHC 32.7 RDW Std Deviation 47.9 H RDW Coeff of Sole 13.7 Plt Count 402 H MPV 9.6 Immature Gran % (Auto) 0.5 Neut % (Auto) 67.1 Lymph % (Auto) 26.7 Talbot % (Auto) 2.6 Eos % (Auto) 2.8 Baso % (Auto) 0.3 Neut # (Auto) 11.08 H Lymph # (Auto) 4.42 H Talbot # (Auto) 0.43 Eos # (Auto) 0.47 Baso # (Auto) 0.05 Immature Gran # (Auto) 0.08 Peripher Smr Path Cons Sodium 139 Potassium 3.7 Chloride 107 Carbon Dioxide 27 Anion Gap 5 BUN 8 Creatinine 0.68 D Est Cr Clr Drug Dosing 83.8 Est GFR ( Amer) 127.7 Est GFR (Non-Af Amer) 110.2 BUN/Creatinine Ratio 11.8 Glucose 104 H Calcium 8.8 Troponin I High Sens 91.1 H* D Urine Color Yellow Urine Appearance Cloudy A Urine pH 6.5 Ur Specific Sheridan 1.010 Urine Protein 1+ H Urine Glucose (UA) Trace H Urine Ketones Negative Urine Blood Trace H Urine Nitrite Negative Urine Bilirubin Negative Urine Urobilinogen Negative Ur Leukocyte Esterase Negative Urine WBC (Auto) 5-10 H Urine RBC (Auto) 0-4 U Hyaline Cast (Auto) 1-5 U Epithel Cells (Auto) >30 H Urine Bacteria (Auto) Negative Ur Renal Epithelial Cell Not Reportable Nasal Screen MRSA (PCR) Negative Urine Opiates Screen Neg Ur Methadone, Qual Neg Urine Barbiturates Neg Ur Phencyclidine (PCP) Neg U Amphetamin/Meth Scrn Neg MDMA (Ecstasy) Screen Neg U Benzodiazepines Scrn Neg Ur Cocaine Metabolite Pos H U Marijuana (THC) Screen Pos H 09/03/23 11:07 WBC RBC Hgb Hct MCV MCH MCHC RDW Std Deviation RDW Coeff of Sole Plt Count MPV Immature Gran % (Auto) Neut % (Auto) Lymph % (Auto) Talbot % (Auto) Eos % (Auto) Baso % (Auto) Neut # (Auto) Lymph # (Auto) Talbot # (Auto) Eos # (Auto) Baso # (Auto) Immature Gran # (Auto) Peripher Smr Path Cons Sodium Potassium Chloride Carbon Dioxide Anion Gap BUN Creatinine Est Cr Clr Drug Dosing Est GFR ( Amer) Est GFR (Non-Af Amer) BUN/Creatinine Ratio Glucose Calcium Troponin I High Sens 81.6 H* Urine Color Urine Appearance Urine pH Ur Specific Sheridan Urine Protein Urine Glucose (UA) Urine Ketones Urine Blood Urine Nitrite Urine Bilirubin Urine Urobilinogen Ur Leukocyte Esterase Urine WBC (Auto) Urine RBC (Auto) U Hyaline Cast (Auto) U Epithel Cells (Auto) Urine Bacteria (Auto) Ur Renal Epithelial Cell Nasal Screen MRSA (PCR) Urine Opiates Screen Ur Methadone, Qual Urine Barbiturates Ur Phencyclidine (PCP) U Amphetamin/Meth Scrn MDMA (Ecstasy) Screen U Benzodiazepines Scrn Ur Cocaine Metabolite U Marijuana (THC) Screen Diagnostic Findings blood cx's negative to date PG Care Time/CCT Total # of Minutes Spent Total Time Spent with Patient: Total time spent is greater than 50% in coordination of care (as documented) at patient's floor/unit and/or counseling patient: Coding Level of Care Code 81608 SUB INP/OBS CARE 3/50MIN Diagnoses Aspiration pneumonia J69.0 Head injury S09.90XA Syncope R55 Accidental overdose T50.901A Polysubstance abuse F19.10 Mo's granulomatosis M31.30 Granulomatosis renal involvement: unspecified whether renal involvement JUNG (acute kidney injury) N17.9 Transaminitis R74.01 Elevated troponin R79.89 Leukocytosis D72.829 On methotrexate therapy Z79.631 Anxiety F41.9 (6) Mo's granulomatosis Granulomatosis renal involvement: unspecified whether renal involvement Qualified Code(s): M31.30 - Mo's granulomatosis without renal involvement
[2023-09-03] MEDS: cefTRIAXone SODIUM 2,000 MG in DEXTROSE 5 % MINI-B 50 ML IV SCH (20:35)
[2023-09-03] MEDS: ACETAMINOPHEN 325 MG TAB PO PRN (20:35)
[2023-09-04 07:25] LABS: Basophils # (auto) 0.05 K/uL (0.00-0.20); Basophils % (auto) 0.4 %; Eosinophils # (auto) 0.42 K/uL (0.00-0.50); Eosinophils % (auto) 3.3 %; Hematocrit (blood only) 38.7 % (37.0-47.0); Hemoglobin 12.8 g/dl (12.0-16.0); Immature Granulocytes # (auto) 0.05 K/uL (0.01-0.20); Immature Granulocytes % (auto) 0.4 %; Lymphocytes # (auto) 3.82 K/uL (1.20-3.40); Lymphocytes % (auto) 30.1 %; Mean Corpuscular Hemoglobin 32.2 pg (25.0-34.0); Mean Corpuscular Hgb Conc 33.1 g/dL (32.0-36.0); Mean Corpuscular Volume 97.2 fL (80.0-100.0); Mean Platelet Volume 9.6 fL (9.4-12.4); Monocytes # (auto) 0.46 K/uL (0.11-0.59); Monocytes % (auto) 3.6 %; Neutrophils # (auto) 7.87 K/uL (1.40-6.50); Neutrophils % (auto) 62.2 %; Platelet Count 392 K/uL (130-400); RDW Coefficient of Variation 13.5 % (11.5-14.5); RDW Standard Deviation 47.8 fL (36.4-46.3); Red Blood Count 3.98 M/uL (4.20-5.40); White Blood Count 12.67 K/ul (4.8-10.8)
[2023-09-04 07:43] LABS: BUN Creatinine Ratio 10.6 (10-20); Calcium 8.9 mg/dl (8.6-10.3); Creatinine Clr Calc Pharmacy 86.4 ml/min; Est GFR (Non-African American) 111.3 ml/min; Potassium 3.7 mmol/L (3.5-5.1)
[2023-09-04] MEDS: buPROPion XL 150 MG TABCR PO SCH (08:32)
[2023-09-04] MEDS: busPIRone 5 MG TAB PO SCH (08:32)
[2023-09-04] MEDS: SERTRALINE HCL 100 MG TABLET PO SCH (08:32)
[2023-09-04] MEDS: predniSONE 10 MG TABLET PO SCH (08:32)
[2023-09-04] MEDS: FOLIC ACID 1 MG TAB PO SCH (08:32)
[2023-09-04] MEDS: ACETAMINOPHEN 325 MG TAB PO PRN (08:33)
[2023-09-04] MEDS: MONTELUKAST SODIUM 10 MG TABLET PO SCH (08:33)
[2023-09-04] MEDS: ENOXAPARIN INJ 40 MG/0.4 ML SYR SQ SCH (08:35)
[2023-09-04] MEDS: MUPIROCIN 2% OINT 22 GM TUBE TOP SCH (08:36)
[2023-09-04 09:06] LABS: Alanine Aminotransferase 56 U/L (7-52); Aspartate Aminotransferase 55 U/L (13-39); Creatine Kinase 938 U/L (26-192)
--- NOTE | 2023-09-04 17:29 | Discharge Summary ---
Date of Service September 04, 2023 Admission HPI Per Admitting Provider Jennifer is a 38-year-old female with past medical history of substance abuse, anxiety/depression, Mo's granulomatosis who presented to the ER after a accidental overdose. Patient had used cocaine and then lost consciousness and woke up in the ambulance. By EMS/ER report patient was found unresponsive by her boyfriend and was administered Narcan prehospital which improved mentation. Patient has no history of fentanyl/heroin abuse. Acute leukocytosis of 31.71 with Intrasite predominance and left shift. High sensitive troponin 81, repeat 127 in the setting of cocaine use TSH elevated, free T4 normal UA is contaminated but not infected appearing Urine tox shows positive cocaine positive marijuana, this is negative for opiates Chest x-ray without acute findings, hip and pelvis x-ray is without acute findings Creatinine is acutely elevated at 1.32 from baseline of around 0.9. Potassium low at 3.1, repleted Went out with friends around 1pm. Was offered what she thought was cocaine, but was actually fentanyl. Didn't feel right immediately after, sat down, and then woke up in the ambulance. Last known cocaine use 1x in the last week. 2 drinks last night, normally does not trink etoh at all due to her methotrexate. She takesthis 1x per week and took her weekly dose this morning. Prenisone currently on taper from 1 week ago (last ), now on last day of 20mg and scheduled to go back to 10mg starting tomorrow. Was off prednisone for a while, but due to the season change had more sinus infections so pred was restarted on prenisone last week after she completed a 1 week course of an antibiotic (levofloxacin). She is no longer taking hctz, took this for kidney stones. Takes bupropion, took this am. took buspar this monring is down to once daily. Takes folic acid daily. Takes sertraline 150 in the morning. Medical History: Reviewed Medications: Reviewed Surgical History: Reviewed Family history: Reviewed Allergies: Reviewed Social History: Rare social etoh. Less than monthly use. Intermittent tobacco use. Declines patch Code Status: Full Principal Diagnosis acute hypoxic respiratory failure due to aspiration pneumonia or pneumonitis, accidental overdose Discharge Exam PHYSICAL EXAMINATION Last 24h vital signs reviewed, see documentation in flowsheet General: comfortable appearing, no distress HEENT: Normocephalic, atraumatic, pupils round and equal, sclerae anicteric, no conjunctival injection, moist mucus membranes Lungs: Normal respiratory effort. clear except slightly diminished and coarse in left base. No RRW Heart: Regular rate and rhythm, no murmurs. No JVD Abdomen: Soft, nondistended. Extremities: Warm, dry, well-perfused. No extremity edema. Neuro: Alert and oriented x 4, face symmetric, moves 4 extremities well Psych: Normal affect and behavior Discharge Data Allergies Allergy/AdvReac Type Severity Reaction Status Date / Time No Known Allergies Allergy Verified 06/01/23 09:50 Consultations 09/02/23 12:52 ED Decision to Admit Stat Ordered Studies 09/02/23 13:14 CT angio chest PE protocol Stat 09/03/23 14:57 CT head/brain wo con Urgent Chest X-Ray 09/02/23 06:29 XR chest 1V portable CLINICAL HISTORY: Shortness of breath. COMPARISON STUDY: Chest radiograph and left rib series October 20, 2022. FINDINGS: Lung volumes are normal. Lungs are clear. There is no pneumothorax or pleural effusion. Cardiac size is normal. Mediastinal contours are normal. There is no evidence for pulmonary edema. IMPRESSION: No acute cardiopulmonary findings. ACT 112: Negative or not required by law. Electronically signed by: Micah Sunshine M.D. 09/02/2023 7:11 AM Hip/Pelvis X-Ray 09/02/23 07:17 XR hip RT 2V w pelvis CLINICAL HISTORY: Right hip pain. COMPARISON: CT of the abdomen and pelvis September 09, 2022. FINDINGS: Sacroiliac joints and symphysis pubis are intact. There is no acute fracture within the pelvis or hips. Hip joint spaces are preserved. There is mild osteophytosis of both hips. Tiny ossicles along the right acetabulum are present. No evidence for avascular necrosis of the femoral heads. There are no osseous lesions. IMPRESSION: 1. No fractures within the pelvis or hips. 2. Preserved bilateral hip joint spaces. Mild bilateral hip osteophytosis. ACT 112: Negative or not required by law. Electronically signed by: Micah Sunshine M.D. 09/02/2023 8:13 AM Chest X-Ray 09/02/23 11:07 XR chest 1V portable CLINICAL HISTORY: Hypoxia. COMPARISON STUDY: Chest radiograph performed earlier today FINDINGS: Lung volumes are normal. Lungs are clear. There is no pneumothorax or pleural effusion. Cardiac size is normal. Mediastinal contours are normal. There is no evidence for pulmonary edema. IMPRESSION: No acute cardiopulmonary findings. ACT 112: Negative or not required by law. Electronically signed by: Micah Sunshine M.D. 09/02/2023 11:54 AM Chest CTA 09/02/23 13:14 CT angio chest PE protocol CLINICAL HISTORY: PE TECHNIQUE: Multidetector row helical CT of the chest was performed with angiographic protocol. Coronal and sagittal reformations were obtained. Coronal and sagittal MIPS were obtained from the axial data set and were submitted for review. Automated dose lowering techniques and/or adjustment according to patient size were utilized for this exam. CT DOSE: 239.98 mGy.cm Comparison: None available at the time of this dictation. FINDINGS: Lungs and pleura: There is groundglass opacities are seen most prominently in the left lower lobe. Heart and pericardium: Heart size is normal. No pericardial effusion. Vessels: No evidence of pulmonary embolism. Mediastinum and taiwo: Unremarkable. Chest wall and lower neck: Unremarkable. Abdomen: Unremarkable. Bones: Unremarkable. IMPRESSION: No pulmonary embolus. Groundglass opacities favored to represent pneumonia, most prominent in the left lower lobe. ACT 112: Negative or not required by law. Electronically signed by: Gallito Navarrete M.D. 09/02/2023 4:[address] 09/03/23 14:57 CT head/brain wo con CLINICAL HISTORY: 38 years-old Female with syncope, fall, head injury - r/o ICH, etc. Acute head injury status post fall TECHNIQUE: Multiple axial CT images of the head were obtained without contrast. A dose lowering technique was utilized adhering to the principles of ALARA. CT DOSE: 547.75 mGy.cm COMPARISON: None. FINDINGS: No acute intracranial hemorrhage, midline shift, intracranial mass, hydrocephalus, territorial ischemia or abnormal extra-axial collection. The calvarium is intact. Minimal mucosal thickening of the imaged paranasal sinuses. The mastoid air cells are clear. IMPRESSION: No acute intracranial abnormality or calvarial fracture. ACT 112: Negative or not required by law. The above report was generated using voice recognition software. It may contain grammatical, syntax or spelling errors. Electronically signed by: Catarino Mccauley M.D. 09/03/2023 4:05 PM 09/04/23 06:38 09/04/23 06:38 Hospital Course (1) Aspiration pneumonia: presented with hypoxia which resolved CT chest with groundglass opacities primarily in the LLL She had been vomiting and had syncope treated for aspiration pneumonia versus pneumonitis - initially treated with IV ceftriaxone, will complete a course of oral Augmentin Blood cx's neg to date. (2) Accidental overdose: intended to use cocaine but suspected to have been contaminated with fentanyl based on her presentation was administered 1 dose of Narcan by her boyfriend per EMS with improvement in mentation. Utox with cocaine and cannabis, fentanyl does not show up on standard tox screens mild elevations in HS-trop, CK, AST, ALT related to the overdose are minimal or improving counseled to avoid all street drugs - many of which are laced with fentanyl and can cause fatal overdose. She is not habitual user and this episode scared her, reports she intends to stay away from all street drugs going forward -counseled about the availability of fentanyl test strips and need to have naloxone on hand were she ever to use street drugs (3) Head injury: minor, likely occurred during loss of consciousness obtained CT head - negative, no acute findings has no concussive symptoms (4) Syncope: loss of consciousness in the setting of an overdose non-focal neuro exam echo wnl tele normal electrolytes stable no further workup indicated (5) Polysubstance abuse: tox screen + for cocaine and THC prior h/o heroin use per the chart tobacco use (6) Mo's granulomatosis: Follows with ENT - Dr Wheeler - [facility] [place] [facility] h/o recurrent sinusitis. last follow-up 08/22/2023 - septal perforation and left maxillary sinusitis seen by Dr Wheeler. Was not felt to be a surgical candidate. Was prescribed Levaquin x 10 days on 08/22/2023 and 12-day prednisone taper. also follows with Dr. Banerjee from [facility] Rheum takes chronic methotrexate once weeky sinuses were incidentally clear on Ct head. continue usual meds and follow up. (7) JUNG (acute kidney injury): resolved s/p IV fluids (8) Transaminitis: see above (9) Elevated troponin: likely myocardial demand ischemia in setting of overdose (cocaine more than likely) no ACS echo wnl (10) Leukocytosis: 31 upon presentation now improved to 12 physical stress of overdose/syncope, aspiration pneumonia, recent prednisone use with demargination, etc all to blame (11) On methotrexate therapy: for Omega's Granulomatosis cont folate (12) Anxiety: cont wellbutrin cont sertraline cont buspar Total Time Total Time Spent Total Time Spent (In Minutes): 25 minutes coordinating care for discharge Discharge Plan Discharge Items Patient Disposition: Home - Self-Care Reason For Visit: ACUTE HYPOXIC RESP FAILURE, ACCIDENTAL OVERDOSE Discharge Diagnosis: acute hypoxic respiratory failure, right lower lobe aspiration pneumonitis or pneumonia, accidental opioid overdose Activity: Resume your previous activity Non-emergency contact: Primary Care Provider Call non-emergency contact if: you have any medication questions, your symptoms worsen and your temperature is above 101 Follow-up/Referrals: Juliette Yeager MD [Primary Care Provider] - 09/12/23 11:00 am Diet: Regular Addtl Attending Provider Instructions: You were treated for low oxygen related to right sided aspiration pneumonia or pneumonitis and accidental overdose, likely exposure to fentanyl Take amoxicillin-clavulanate (augmentin) for three more days to finish treating pneumonia Avoid street drugs - many are laced with fentanyl, which can cause overdose and even if only a tiny amount is present -fentanyl test strips are available commercially and from harm-reduction organizations like needle exchanges, and always have narcan (naloxone) available if you choose to use street drugs in the future Your blood pressure was elevated in the hospital, but that might be a short-term issue. 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 is very bad for your health if untreated - follow up with your doctor - blood pressure may need to be treated with medication if remaining high in the future Angela Benjamin MD Pending Studies at Discharge: Yes (blood cultures drawn at admission - negative to date) Stand-Alone Forms: [employer], Smoking Cessation Medications and DC Order Prescriptions: New amoxicillin-pot clavulanate 875-125 mg tablet 1 tab PO BID Qty: 6 0RF Continued hydrochlorothiazide 12.5 mg tablet 6.25 - 12.5 mg PO QAM Qty: 90 1RF Rx Instructions: pharmacy has on hold montelukast 10 mg tablet 10 mg PO QAM Qty: 90 1RF bupropion HCl [Wellbutrin XL] 150 mg tablet extended release 24 hr 150 mg PO QAM Qty: 90 1RF buspirone 10 mg tablet 10 mg PO BID PRN (Reason: anxiety) Qty: 60 2RF methotrexate sodium 2.5 mg tablet 20 mg PO WK Rx Instructions: TAKES 4 TABS BID ON THURSDAYS WEEKLY. folic acid 1 mg tablet 2 mg PO DAILY sertraline 100 mg tablet 150 mg PO DAILY Qty: 135 3RF mupirocin 2 % ointment 1 applic topical BID Qty: 15 2RF Rx Instructions: APPLY TO AFFECTED NOSTRIL TWICE DAILY FOR 2 WEEKS sulindac 200 mg PO BID prednisone 10 mg tablet See Rx Instructions PO DAILY Qty: 30 0RF Rx Instructions: Four tabs daily x3 days, then 3 tabs daily x3 days, then 2 tabs daily x3 days, then 1 tab daily x3 days multivitamin Tablet 1 tab PO QAM Rx Instructions: OTC unable to verify with pharmacy 09/02/23 Discharge Orders: Discharge Order (Routine); Ordered 09/04/23 Ordered By: Angela Benjamin Admission Data Admit Date/Time: 09/02/23 13:52 Attending Provider: Angela Benjamin Admit Provider: Luis Armando Garza Primary Care Provider: Juliette Yeager V. Other Providers: Luis Armando Garza Other Interventions: Discharge Summary Assessment (RN) Last Done: 09/04/23 12:49 Coding Level of Care Code 08066 IN/OBS DISCH 30 MIN/LESS Diagnoses Aspiration pneumonia J69.0 Accidental overdose T50.901A Head injury S09.90XA Syncope R55 Polysubstance abuse F19.10 Mo's granulomatosis M31.30 Granulomatosis renal involvement: unspecified whether renal involvement JUNG (acute kidney injury) N17.9 Transaminitis R74.01 Elevated troponin R79.89 Leukocytosis D72.829 On methotrexate therapy Z79.631 Anxiety F41.9
[2023-09-06 20:42] LABS: Cocaine, Urine >15000 ng/mL (<100); Marijuana Quant, GCMS Urine 119 ng/mL (<5)
== END 2023-09-04 13:09 | disposition home or self-care (01) | DRG 917 ==
LOC: ED 05:59 → 2N 13:52 → SUATTDRO 13:52 → 2N 15:55